=== PATIENT | female | born 1985 | race Two or more races ===

== ENCOUNTER 2019-04-10 10:29 | Emergency (ER) | payer OTHER ==
[~2019-04-10] VITALS: Ht 160 cm; Wt 72.6 kg
[~2019-04-10 10:29] MED LIST: PRENATAL TABLE1 EAC2 PO
== END 2019-04-10 20:12 | disposition home or self-care (01) ==
LOC: ER 10:29
DX: K59.09 Other constipation (principal); R10.13 Epigastric pain; N83.292 Other ovarian cyst, left side

== ENCOUNTER 2022-06-30 08:56 | Emergency (ER) | payer OTHER ==
[~2022-06-30] VITALS: Ht 160 cm; Wt 72.6 kg
[2022-06-30] MEDS ORDERED: OZEMPIC0.25 MG/0. SQ (09:10)
== END 2022-06-30 10:24 | disposition home or self-care (01) ==
LOC: ER 08:56
DX: M54.50 Low back pain, unspecified (principal)